=== PATIENT | female | born 1990 | race Caucasian/White ===

== ENCOUNTER 2017-04-01 22:47 | Inpatient (IN) | payer OTHER ==
[2017-04-01] MEDS ORDERED: CARBOPROST TROMETHAMINE 250 MCG/ML 1 ML AMP IM PRN (23:26)
[2017-04-01] MEDS ORDERED: METHYLERGONOVINE 0.2 MG/ML 1 ML AMP IM PRN (23:26)
[2017-04-01] MEDS ORDERED: OXYTOCIN 10 UNIT/ML 1 ML VIAL IM PRN (23:26)
[2017-04-01] MEDS ORDERED: TERBUTALINE 1 MG/ML VIAL SQ PRN (23:26)
[2017-04-01] MEDS ORDERED: LIDOCAINE 1% (PF) 10 MG/ML (30 ML SDV) SQ PRN (23:26)
[2017-04-01] MEDS ORDERED: LACTATED RINGERS 1,000 ML IV SCH (23:30)
[2017-04-02 00:35] LABS: Basophils # (A) 0.1 k/uL (0-0.2); Basophils % (A) 1 %; CH 30.2; CHCM 33.9; Eosinophils # (A) 0.1 k/uL (0-0.7); Eosinophils % (A) 1 %; HCT 38.2 % (34.0-46.0); HDW 2.88; HGB 12.9 gm/dL (11.4-16.0); Luc # (Auto) 0.23; Luc % (Auto) 2; Lymphocytes # (A) 1.8 k/uL (1.0-4.8); Lymphocytes % (A) 12 %; MCH 30.3 pg (25.0-35.0); MCHC 33.7 g/dL (31.0-37.0); MCV 89.8 fL (80.0-100.0); Mean Platelet Volume 7.8; Monocytes # (A) 0.6 k/uL (0-1.0); Monocytes % (A) 4 %; Neutrophils # (A) 12.1 k/uL (1.3-7.7); Neutrophils % (A) 81 %; RBC 4.26 m/uL (3.80-5.40); WBC 14.9 k/uL (3.8-10.6); WBC (Perox) 14.33
[2017-04-02 00:55] VITALS: BMI 37.2
--- NOTE | 2017-04-02 02:40 | P.HPOB ---
History of Present Illness H&P Date: 04/02/17 Chief Complaint: 39-6/7 weeks, spontaneous rupture of membranes, early labor The patient is a 26-year-old 2 para 1001 admitted with documented spontaneous rupture of membranes of clear fluid. Her has been essentially uncomplicated and group B strep status is negative. She has requested nonintervention as much as possible and has a fairly extensive plan documented in the chart. Upon admission, all signs are reassuring. Obstetrical history: 2 para 1001 with 1 term vaginal delivery without complications. Current statistics are listed in history of present illness. EDC of 04/03/2017 was established by last menstrual period and confirmed by second trimester ultrasound. Laboratory workup demonstrates a blood type of O+ with a negative antibody screen. Rubella status is immune. All other laboratory workup was within normal limits. One hour Glucola was normal and group B strep status is negative. Gynecologic history: Unremarkable with no history of any infections to include STDs. Review of Systems Review of systems is confined to history of present illness. Past Medical History Past Medical History: Asthma History of Any Multi-Drug Resistant Organisms: None Reported Past Surgical History: Adenoidectomy, Ear Surgery, Tonsillectomy Past Anesthesia/Blood Transfusion Reactions: No Reported Reaction Past Psychological History: Anxiety, Depression Smoking Status: Never smoker Past Alcohol Use History: Occasional Past Drug Use History: None Reported - Past Family History Mother Family Medical History: No Reported History Medications and Allergies Home Medications Medication Instructions Recorded Confirmed Type buPROPion HCL [Wellbutrin XL] 300 mg PO DAILY 07/08/15 01/10/16 History Allergies Allergy/AdvReac Type Severity Reaction Status Date / Time No Known Allergies Allergy Verified 04/01/17 23:12 Exam - Vital Signs Vital signs: Vital Signs Temp Pulse Resp BP Pulse Ox 04/01/17 23:12 95.6 F L 85 18 167/93 100 Intake and Output 04/01/17 04/01/17 04/02/17 14:59 22:59 06:59 Other: Weight 95.254 kg Patient Weight 04/02/17 06:59 Weight 95.254 kg In general, this is a well-developed, well-nourished white female in no acute distress. Her heart has a regular rhythm and rate without murmur. Her lungs are clear to auscultation bilaterally in all sanchez. Her abdomen is gravid, nondistended, has normal active bowel sounds, is soft, nontender, and without any palpable masses aside from uterine fundus. Her extremities are without any cyanosis, clubbing, or edema and are nontender to palpation bilaterally. Digital cervical examination performed by the nursing staff demonstrates her cervix to be dilated only to fingertip, 80% effacement, with the vertex in presentation at -2 station. Spontaneous rupture of membranes is confirmed. Results Result Diagrams: 04/02/17 00:05 Abnormal Lab Results - Last 24 Hours (Table) 04/02/17 Range/Units 00:05 WBC 14.9 H (3.8-10.6) k/uL Neutrophils # 12.1 H (1.3-7.7) k/uL Assessment and Plan (1) Active labor at term Status: Acute Plan: The patient is admitted for management of labor. She has requested as much nonintervention as possible which we will allow as long as that remain safer both she and the fetus. I did discuss with her that, given her minimal dilation at this time, some intervention may become necessary if she does not begin to make fairly significant progress on her own. In either case, she will continue to have close maternal and surveillance and expectant management will be practiced. She has requested intermittent monitoring to which we have agreed as long as there is a reactive strip a 15 minutes once an hour. She is a good candidate for either IV or epidural analgesia, if she so chooses.
[2017-04-02 03:26] LABS: Hepatitis C Virus IgG Ab Negative (Negative); Hepatitis C Virus IgG Index 0.01
[2017-04-02] MEDS ORDERED: PENICILLIN G POTASSIUM 5,000,000 UNIT in DEXTROSE 5% IN WATER 100 ML IV STA ×2 (09:31)
[2017-04-02] MEDS ORDERED: OXYTOCIN 20 UNITS/1000 ML NS 1,000 ML IV SCH ×2 (09:45→22:45)
[2017-04-02] MEDS: LACTATED RINGERS 1,000 ML IV SCH (09:47)
[2017-04-02] MEDS: PENICILLIN G POTASSIUM 2,500,000 UNIT in DEXTROSE 5% IN WATER 100 ML IV SCH ×4 (14:39→19:06)
[2017-04-02] MEDS ORDERED: BENZOCAINE SPRAY 57GM TOPICAL PRN (22:38)
[2017-04-02] MEDS ORDERED: WITCH HAZEL 1 EACH MED..PAD TOPICAL PRN (22:38)
[2017-04-02] MEDS ORDERED: diphenhydrAMINE 50 MG CAP PO PRN (22:38)
[2017-04-02] MEDS ORDERED: ZOLPIDEM 5 MG TAB PO PRN (22:38)
[2017-04-02] MEDS ORDERED: LANOLIN CREAM 5 GM TUBE TOPICAL PRN (22:38)
[2017-04-02] MEDS ORDERED: diphenhydrAMINE 25 MG CAP PO PRN (22:38)
[2017-04-02] MEDS ORDERED: diphenhydrAMINE 50 MG/ML 1 ML VIAL IVP PRN ×2 (22:38)
[2017-04-02] MEDS ORDERED: HYDROCORTISONE 2.5% RECTAL CREAM 30 GM TUBE RECTAL PRN (22:38)
[2017-04-02] MEDS ORDERED: ACETAMINOPHEN TAB 325 MG TAB PO PRN (22:38)
[2017-04-02] MEDS ORDERED: SIMETHICONE 80 MG CHEWABLE PO PRN (22:38)
--- NOTE | 2017-04-02 22:38 | P.PROBDLV ---
Vaginal Delivery Note - . Vaginal Delivery Note: Findings: Female in the vertex presentation nuchal cord 1 Apgars of 8 at 1 minute and 9 at 5 minutes. Intact, three-vessel cord placenta, mild calcifications. No perineal lacerations. Small right labial laceration. EBL 150 mL's. Delivery summary: This is a 26 year old 2 para 1001 woman with an estimated due date of 04/03/2017 who presented at 39-6/7 weeks' gestation with rupture of membranes. Rupture occurred at 2014 on 04/01/2017. Fluid was clear. She presented to labor and delivery triage with rupture of membranes was confirmed. She is not actively laboring. She requested and was deemed appropriate for a non-interventional course. Her for greater than 12 hours transpired without spontaneous onset of labor. She therefore agreed to Pitocin induction of labor as well as prophylactic antibiotics for prolonged rupture of membranes. Her group B strep status is known to be negative. She eventually entered active labor. At approximately 2210 she was 7 cm dilated and 90% effaced. She had urge to push. I was notified at this time. She reached complete cervical dilation by 2213. She was delivered of a liveborn female with nurses in attendance at 2219. I arrived very shortly thereafter. was pink and vigorous on the maternal abdomen with umbilical cord still pulsing. She had minimal vaginal bleeding. Eventually she agreed to having the cord clamped and cut. An intact, three-vessel cord placenta was then gently expressed. This approximately 12 minute third stage of labor. The perineum and vagina were further inspected and a small right labial laceration was noted. The uterus was massaged and noted to be firm at the level of the umbilicus. She received Pitocin following the third stage of labor. Both mother and were doing well post delivery in the room. Weight is pending at the time of this dictation. All counts were correct.
[2017-04-03] MEDS: PENICILLIN G POTASSIUM 2,500,000 UNIT in DEXTROSE 5% IN WATER 100 ML IV SCH ×2 (00:04)
[2017-04-03] MEDS: LACTATED RINGERS 1,000 ML IV SCH (00:04)
[2017-04-03 05:09] LABS: Basophils % (A) 0 %; CH 30.4; Eosinophils # (A) 0.1 k/uL (0-0.7); Eosinophils % (A) 1 %; HCT 35.6 % (34.0-46.0); HDW 2.86; HGB 11.8 gm/dL (11.4-16.0); Luc # (Auto) 0.21; Luc % (Auto) 1; Lymphocytes # (A) 1.4 k/uL (1.0-4.8); Lymphocytes % (A) 7 %; MCH 29.8 pg (25.0-35.0); MCHC 33.2 g/dL (31.0-37.0); MCV 89.8 fL (80.0-100.0); Mean Platelet Volume 7.2; Monocytes # (A) 0.6 k/uL (0-1.0); Monocytes % (A) 4 %; Neutrophils # (A) 15.8 k/uL (1.3-7.7); Neutrophils % (A) 87 %; RBC 3.96 m/uL (3.80-5.40); RDW 15.1 % (11.5-15.5); WBC 18.2 k/uL (3.8-10.6)
--- NOTE | 2017-04-03 08:19 | P.PNOBGVD ---
Subjective - Subjective Principal diagnosis: day 1 Interval history: Feeling well. Complaining of bilateral lower leg swelling. Not painful or read. Patient reports: Reports appetite normal, Reports voiding normally, Reports pain well controlled, Reports ambulating normally [place]: doing well Objective - Latest Vital Signs Latest vital signs: Vital Signs Temp Pulse Resp BP 04/03/17 04:00 98.5 F 79 18 117/59 04/03/17 00:35 74 19 126/66 04/03/17 00:05 64 17 148/72 04/02/17 23:35 71 18 141/69 04/02/17 23:20 70 18 144/75 04/02/17 23:05 97.0 F L 70 18 142/70 04/02/17 22:50 77 16 151/81 04/02/17 22:35 83 18 147/73 Intake and Output 04/02/17 04/03/17 04/03/17 22:59 06:59 14:59 Intake Total 38 Balance 38 Intake: Intake, IV Titration 38 Amount Oxytocin 20 Units/1000 ml 38 Ns 1,000 ml @ 1 MILLIUNIT/MIN 3 mls/hr IV .Q24H [facility] Rx#:[id number] Other: # Voids 1 1 - Exam Extremities: Present: edema (2+, symmetric, nontender, no erythema) Abdomen: Present: soft. Absent: tenderness Uterus: Present: normal - Labs Labs: Abnormal Lab Results - Last 24 Hours (Table) 04/03/17 Range/Units 04:57 WBC 18.2 H (3.8-10.6) k/uL Neutrophils # 15.8 H (1.3-7.7) k/uL Assessment and Plan (1) Premature rupture of membranes Current Visit: Yes Status: Acute Code(s): O42.90 - GINGER ROM, 7TH0 BETW RUPT & ONST LABR, UNSP WEEKS OF GEST SNOMED Code(s): 57736528 (2) Prolonged rupture of membranes Current Visit: Yes Status: Acute Code(s): O42.90 - GINGER ROM, 7TH0 BETW RUPT & ONST LABR, UNSP WEEKS OF GEST SNOMED Code(s): 903616669 (3) Status post normal vaginal delivery Narrative/Plan: day #1 status post normal spontaneous vaginal delivery, prolonged rupture of membranes. Afebrile today. Recovering well, routine care. Anticipate discharge home tomorrow. Current Visit: Yes Status: Acute Code(s): PFP5033 - SNOMED Code(s): 128020381
[2017-04-03] MEDS: IBUPROFEN 600 MG TAB PO PRN ×2 (08:40→16:06)
[2017-04-03] MEDS: SENNOSIDES-DOCUSATE SODIUM 1 EACH TAB PO SCH ×2 (08:41→19:37)
[2017-04-04] MEDS: IBUPROFEN 600 MG TAB PO PRN ×2 (00:09→12:17)
--- NOTE | 2017-04-04 08:24 | P.DS ---
Providers Date of admission: 04/01/17 23:09 Expected date of discharge: 04/04/17 Attending physician: Karon Win Primary care physician: Karon Win - Discharge Diagnosis(es) (1) Premature rupture of membranes Current Visit: Yes Status: Acute (2) Prolonged rupture of membranes Current Visit: Yes Status: Acute (3) Status post normal vaginal delivery Current Visit: Yes Status: Acute Hospital Course: This is a 26-year-old 2 now para 2 woman who presented at 39-6/7 weeks' gestation with premature rupture of membranes. She was managed conservatively however after approximately 12 hours she had not entered active labor therefore Pitocin induction of labor was initiated. She did receive prophylactic antibiotics for prolonged rupture of membranes. There was no evidence of chorioamnionitis throughout her labor and heart tones were reassuring. When she reached active labor she did have a rather rapid progression. She then precipitously delivered a liveborn female over an intact perineum weighing 7 lbs. 3 oz. with Apgars of 9 at 1 minute and 9 at 5 minutes. There was a nuchal cord 1. The patient's course was unremarkable. She did have some significant lower extremity edema on day one in 2 however this was symmetric without erythema or pain. By day 2 her lochia was minimal and she was breast-feeding successfully. Her vital signs were stable and she was discharged home with routine instructions for care and follow-up. Patient Condition at Discharge: Good Plan - Discharge Summary New Discharge Prescriptions: New Ibuprofen [Motrin] 600 mg PO Q6HR PRN tab PRN Reason: Mild Pain Or Fever >= 100.5 Discontinued buPROPion HCL [Wellbutrin XL] 300 mg PO DAILY Discharge Medication List Ibuprofen [Motrin] 600 mg PO Q6HR PRN tab 04/04/17 [Rx] Follow up Appointment(s)/Referral(s): Karon Win MD [Primary Care Provider] - 6 Weeks Activity/Diet/Wound Care/Special Instructions: Follow-up in the office in 6 weeks . Call with any concerning signs or symptoms including heavy vaginal bleeding, severe abdominal pain, fever greater than 101, swelling or redness of the lower extremities, foul vaginal discharge, or signs of depression. Nothing in the vagina for 6 weeks after delivery, specifically no intercourse. Discharge Disposition: HOME SELF-CARE
[2017-04-04 09:18] VITALS: RESP 16
[2017-04-04] MEDS: SENNOSIDES-DOCUSATE SODIUM 1 EACH TAB PO SCH (12:19)
[2017-04-04 17:34] VITALS: BP 131/82; PULSE 82; TEMP 97.3
== END 2017-04-04 17:10 | disposition home or self-care (01) | DRG 774 ==
LOC: FBPOP 22:47 → 4FBP 23:09
PROVIDERS: ADMIT Obstetrics & Gynecology; ATTEND Obstetrics & Gynecology
PROC: 10E0XZZ Delivery of Products of Conception, External Approach (ICD-10-PCS; principal; 2017-04-02)
PROC: 3E033VJ Introduction of Other Hormone into Peripheral Vein, Percutaneous Approach (ICD-10-PCS; 2017-04-02)
PROC: 0HQ9XZZ Repair Perineum Skin, External Approach (ICD-10-PCS; 2017-04-02)
DX: O42.02 Full-term premature rupture of membranes, onset of labor within 24 hours of rupture (principal); O12.05 Gestational edema, complicating the puerperium; O99.344 Other mental disorders complicating childbirth; O63.0 Prolonged first stage (of labor); O62.3 Precipitate labor; Z37.0 Single live birth; O69.81X0 Labor and delivery complicated by cord around neck, without compression, not applicable or unspecified; O70.0 First degree perineal laceration during delivery; Z3A.39 39 weeks gestation of pregnancy; O99.52 Diseases of the respiratory system complicating childbirth; F32.9 Major depressive disorder, single episode, unspecified; F41.9 Anxiety disorder, unspecified; J45.909 Unspecified asthma, uncomplicated
CPT/HCPCS: 59025; 84112; 85025; 86803; 99213

== ENCOUNTER → 2019-06-30 | Outpatient (CLI) | payer OTHER ==
--- NOTE | 2019-06-30 11:46 | XR ---
EXAMINATION TYPE: XR foot complete RT DATE OF EXAM: 06/30/2019 COMPARISON: NONE HISTORY: Pain TECHNIQUE: Three views are submitted. FINDINGS: Postsurgical change involving the first digit with arthropathy of the first MTP joint.. There is n o acute fracture or dislocation. Joint spaces are preserved. IMPRESSION: 1. No acute fracture or dislocation. If symptoms persist, follow-up exam in 7 to 10 days could be ob tained.
== END | disposition home or self-care (01) ==
LOC: RADXRMAIN 11:06
PROVIDERS: ATTEND Physician Assistant
DX: M79.671 Pain in right foot (principal)

== ENCOUNTER 2022-05-28 13:42 | Emergency (ER) | payer OTHER ==
[2022-05-28 14:03] VITALS: BP 122/80; PULSE 76; RESP 18; TEMP 98.3
[2022-05-28] MEDS ORDERED: TOPICAL SKIN ADHESIVE 1 EACH AMP TOPICAL ONE (14:23)
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
== END 2022-05-28 16:22 | disposition home or self-care (01) ==
LOC: EC 13:42
DX: S60.512A Abrasion of left hand, initial encounter (principal); J45.909 Unspecified asthma, uncomplicated; V89.2XXA Person injured in unspecified motor-vehicle accident, traffic, initial encounter
CPT/HCPCS: 99284

== ENCOUNTER → 2024-01-21 | Outpatient (CLI) | payer OTHER ==
--- NOTE | 2024-01-21 10:14 | MR ---
EXAMINATION TYPE: MR angio head wo con DATE OF EXAM: 01/21/2024 COMPARISON: NONE HISTORY: Persistent Headaches, Family history aneurysm TECHNIQUE: Utilizing 3-D [id number] intracranial MRA of the [place] was performed. FINDINGS: The vertebrobasilar and carotid systems are patent. Right vertebral artery is dominant. Vertebral ba silar system is patent. Posterior cerebral arteries are patent anterior middle cerebral arteries are patent. There is no sizable aneurysm or vascular malformation. IMPRESSION: 1. No evidence of vascular malformation or sizable aneurysm.
== END | disposition home or self-care (01) ==
LOC: RADMRIMAIN 09:06
PROVIDERS: ATTEND Family Medicine
DX: G44.52 New daily persistent headache (NDPH) (principal)
CPT/HCPCS: 70544

== ENCOUNTER → 2025-05-25 | Outpatient (CLI) | payer OTHER ==
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
== END | disposition home or self-care (01) ==
LOC: RADXRMAIN 12:45
PROVIDERS: ATTEND Family Medicine
DX: M54.31 Sciatica, right side (principal); M54.32 Sciatica, left side
CPT/HCPCS: 72100